=== PATIENT | female | born 1935 | race Caucasian/White ===

== ENCOUNTER 2018-10-28 07:44 | Emergency (ER) | payer MEDICARE, MEDICAID ==
[~2018-10-28] VITALS: Ht 149.9 cm; Wt 25.0 kg
[~2018-10-28 07:44] MED LIST: AMIO200T42 PO; ASPI-1264 PO; ATOR20TA PO; CLOP75TA35 PO; LORA-512 PO; NOR5T PO; NORCO10T PO; OMEG1CAP PO; PROAIR; VALS160T2 PO
[2018-10-28 09:57] LABS: HEMATOCRIT 27.8 % (35.0-45.0); MEAN CORPUSCULAR HEMOGLOBIN 28.8 PG (27.0-31.0); MEAN CORPUSCULAR HGB CONC 32.4 % (33.0-36.5); MEAN CORPUSCULAR VOLUME 88.8 FL (78-98); MEAN PLATELET VOLUME 9.9 FL (7.4-10.4); PLATELET COUNT 200 X10'3 (140-440); RED BLOOD COUNT 3.13 X10'6 (4.20-5.60); RED CELL DISTRIBUTION WIDTH 17.6 % (11.5-14.5); WHITE BLOOD COUNT 5.4 X10'3 (4.5-11.0)
[2018-10-28 10:14] LABS: ALANINE AMINOTRANSFERASE 25 U/L (12-78); ALBUMIN 3.4 G/DL (3.4-5.0); ALBUMIN/GLOBULIN RATIO 0.9 (1.1-1.5); ALKALINE PHOSPHATASE 125 IU/L (46-116); ANION GAP 12 (8-16); ASPARTATE AMINO TRANSFERASE 38 U/L (10-37); BILIRUBIN,TOTAL 0.7 MG/DL (0.1-1.0); BLOOD UREA NITROGEN 14 MG/DL (7-18); BUN/CREATININE RATIO 10.9 (6.6-38.0); CHLORIDE 105 MMOL/L (99-107); CREATININE 1.29 MG/DL (0.40-0.90); GLUCOSE 84 MG/DL (70-104); PLATELET ESTIMATE NORMAL; SODIUM 143 MMOL/L (135-145); TOTAL CARBON DIOXIDE 26.3 MMOL/L (24-32); TOTAL CELLS COUNTED 100; TOTAL PROTEIN 7.2 G/DL (6.4-8.2); eGFR 40 ML/MIN
[2018-10-28 10:15] LABS: ANISOCYTOSIS 2+; BURR CELLS FEW; SCHISTOCYTES FEW
[2018-10-28 10:16] LABS: ACANTHOCYTES FEW; TARGET CELLS FEW
[2018-10-28 10:27] LABS: CLARITY,URINE SLIGHTLY CLOUDY (Clear); COLOR,URINE YELLOW (Yellow); GLUCOSE, URINE NEGATIVE (Neg); KETONES,URINE TRACE mg/dl (Neg); LEUKOCYTE ESTERASE ,URINE TRACE (Neg); NITRITES, URINE NEGATIVE (Neg); OCCULT BLOOD,URINE SMALL (Neg); PROTEIN,URINE 100 mg/dl (Neg); UROBILINOGEN,URINE 0.2 E.U/dL (0.2-1.0)
[2018-10-28 10:28] LABS: UA COLLECTION TYPE STRAIGHT CATH
[2018-10-28 10:30] LABS: BACTERIA,URINE 1+ /HPF (Neg); RBC,URINE 0-2 /HPF (0-2); SQUAMOUS EPITHELIAL CELL,UR FEW /LPF (FEW); WBC,URINE 0-4 /HPF (0-4)
[2018-10-28 10:30] LABS: INR 1.2 INR; PARTIAL THROMBOPLASTIN TIME 29 SECONDS (22-32); PROTHROMBIN TIME 11.4 SECONDS (9.0-12.0)
[2018-10-28 11:22] VITALS: BP 129/65
== END 2018-10-28 11:24 | disposition home or self-care (01) ==
LOC: ER 07:45
DX: R60.0 Localized edema (principal); I48.91 Unspecified atrial fibrillation; I25.10 Atherosclerotic heart disease of native coronary artery without angina pectoris; I10 Essential (primary) hypertension; Z95.5 Presence of coronary angioplasty implant and graft; Z79.82 Long term (current) use of aspirin; Z79.899 Other long term (current) drug therapy
CPT/HCPCS: 36415; 71045; 80053; 81001; 83880; 84484; 85025; 85610; 85730; 87088; 93005; 99284; P9612

== ENCOUNTER 2018-11-02 23:58 | Inpatient (IN) | payer MEDICARE, MEDICAID ==
[~2018-11-02] VITALS: Ht 147.3 cm; Wt 45.5 kg
--- NOTE | 2018-11-03 01:06 | NUR ---
PER DR SNEED, REMOVE C-COLLAR IT IS CAUSING NECK SPASMS
[2018-11-03 01:21] LABS: HEMATOCRIT 23.3 % (35.0-45.0); HEMOGLOBIN 7.7 g/dl (12.0-16.0); MEAN CORPUSCULAR HEMOGLOBIN 29.3 PG (27.0-31.0); MEAN CORPUSCULAR VOLUME 88.8 FL (78-98); MEAN PLATELET VOLUME 9.9 FL (7.4-10.4); PLATELET COUNT 137 X10'3 (140-440); RED BLOOD COUNT 2.62 X10'6 (4.20-5.60); RED CELL DISTRIBUTION WIDTH 16.6 % (11.5-14.5); WHITE BLOOD COUNT 10.3 X10'3 (4.5-11.0)
[2018-11-03 01:26] LABS: ALANINE AMINOTRANSFERASE 37 U/L (12-78); ALBUMIN 3.2 G/DL (3.4-5.0); ALBUMIN/GLOBULIN RATIO 0.9 (1.1-1.5); ALKALINE PHOSPHATASE 106 IU/L (46-116); ANION GAP 14 (8-16); ASPARTATE AMINO TRANSFERASE 91 U/L (10-37); BILIRUBIN,TOTAL 1.1 MG/DL (0.1-1.0); BLOOD UREA NITROGEN 27 MG/DL (7-18); BUN/CREATININE RATIO 13.3 (6.6-38.0); CALCIUM 8.9 MG/DL (8.5-10.1); CHLORIDE 103 MMOL/L (99-107); CREATININE 2.03 MG/DL (0.40-0.90); GLUCOSE 89 MG/DL (70-104); POTASSIUM 4.3 MMOL/L (3.5-5.1); SODIUM 142 MMOL/L (135-145); TOTAL CARBON DIOXIDE 24.7 MMOL/L (24-32); TOTAL PROTEIN 6.6 G/DL (6.4-8.2); eGFR 24 ML/MIN
[2018-11-03 01:38] LABS: MAGNESIUM 1.9 MG/DL (1.5-2.4)
[2018-11-03 01:50] LABS: TOTAL CELLS COUNTED 100
[2018-11-03 01:51] LABS: ANISOCYTOSIS 1+; BURR CELLS 2+; PLATELET ESTIMATE DECREASED; SCHISTOCYTES 1+
[2018-11-03] MEDS ORDERED: LIDOcaine 1% w/EPI 1:100,000 30ml vial (MDV) IJ ONE (03:25)
[2018-11-03] MEDS ORDERED: LIDOcaine 1.5% w/epinephrine 1:200,000 5ml ampul IJ ONE (03:25)
[2018-11-03] MEDS ORDERED: TETanus/Pertussis (Acell)/Diphther VAC/PF (Tdap-Adult) 0.5ml syringe IM ONE (03:40)
[2018-11-03 04:21] LABS: CLARITY,URINE CLEAR (Clear); COLOR,URINE YELLOW (Yellow); GLUCOSE, URINE NEGATIVE (Neg); KETONES,URINE TRACE mg/dl (Neg); LEUKOCYTE ESTERASE ,URINE NEGATIVE (Neg); NITRITES, URINE NEGATIVE (Neg); OCCULT BLOOD,URINE TRACE-LYSED (Neg); PH,URINE 5.5 (4.8-8.0); PROTEIN,URINE NEGATIVE (Neg); UROBILINOGEN,URINE 0.2 E.U/dL (0.2-1.0)
[2018-11-03] MEDS ORDERED: FLUT1AER IH (04:21)
[2018-11-03] MEDS ORDERED: POTA10TA19 PO (04:21)
[2018-11-03] MEDS ORDERED: LORA10TA7 PO (04:21)
[2018-11-03] MEDS ORDERED: FURO-150 PO (04:21)
[2018-11-03] MEDS ORDERED: LEVO500T2 PO (04:21)
[2018-11-03] MEDS ORDERED: HYDR-4383 PO (04:21)
[2018-11-03 04:24] LABS: UA COLLECTION TYPE FOLEY CATH
[2018-11-03 04:27] LABS: BACTERIA,URINE NONE SEEN /HPF (Neg); RBC,URINE NONE SEEN /HPF (0-2); SQUAMOUS EPITHELIAL CELL,UR FEW /LPF (FEW); WBC,URINE NONE SEEN /HPF (0-4)
[2018-11-03] MEDS ORDERED: mag hydrox/Alum hydrox/simeth 30ml oral suspension PO PRN (08:20)
[2018-11-03] MEDS ORDERED: magnesium 4gm in 100ml NS 100 ML IV PRN (08:20)
[2018-11-03] MEDS ORDERED: HYDROcodone/acetaminophen 10/325mg tab PO PRN (08:20)
[2018-11-03] MEDS ORDERED: ondansetron/PF 4mg/2ml inj IV PRN (08:20)
[2018-11-03] MEDS ORDERED: potassium Cl 40MEQ/NS 500ml 500 ML IV PRN ×2 (08:20)
[2018-11-03] MEDS ORDERED: magnesium hydroxide 30ml (MOM) UD suspension PO PRN (08:20)
[2018-11-03] MEDS ORDERED: magnesium Cl slow-release 64mg tablet PO PRN (08:20)
[2018-11-03] MEDS ORDERED: acetaminophen 325mg tablet PO PRN ×2 (08:20)
[2018-11-03] MEDS ORDERED: potassium Cl 20 mEq SR tablet PO PRN (08:20)
[2018-11-03] MEDS ORDERED: morphine 4 MG/ML inj SYRINge IV PRN ×2 (08:20)
[2018-11-03] MEDS ORDERED: HYDROcodone/acetaminophen 5mg/325mg tablet PO PRN (08:20)
[2018-11-03] MEDS ORDERED: POTA8TAB8 PO (08:53)
[2018-11-03 08:59] LABS: INR 1.4 INR; PARTIAL THROMBOPLASTIN TIME 33 SECONDS (22-32); PROTHROMBIN TIME 14.3 SECONDS (9.0-12.0)
[2018-11-03 09:18] LABS: OCCULT BLOOD STOOL NEGATIVE (Neg)
--- NOTE | 2018-11-03 17:17 | NUR ---
Patient in room ED 11. I have received report from SIRISHA Quinonez and had the opportunity to ask questions and assume patient care.
--- NOTE | 2018-11-03 17:42 | NUR ---
Pt. to room 355 B. VSS. BLL, call light in reach. Pt. tucked in. Will continue to monitor.
[2018-11-03 17:45] VITALS: BP 141/62
[2018-11-03 18:00] VITALS: BP 110/37
[2018-11-03] MEDS: normal saline 1000ml 1,000 ML IV SCH (18:29)
--- NOTE | 2018-11-03 18:33 | NUR ---
Problems reprioritized. Patient report given, questions answered & plan of care reviewed with SIRISHA Dooley.
--- NOTE | 2018-11-03 18:34 | NUR ---
Patient in room [facility]. I have received report from Noman Antunez and had the opportunity to ask questions and assume patient care.
[2018-11-03 20:20] VITALS: BP 176/63
[2018-11-03 20:30] VITALS: BP 161/50
[2018-11-03] MEDS: atorvastatin 20mg tablet PO SCH (21:18)
[2018-11-03] MEDS: HYDROcodone/acetaminophen 5mg/325mg tablet PO SCH (21:18)
[2018-11-03] MEDS: omega-3 acid ethyl esters 1GM capsule PO SCH (21:19)
[2018-11-03 22:30] VITALS: BP 185/61
[2018-11-03 22:50] VITALS: BP 149/55
[2018-11-04] VITALS (13 sets, daily range): BP systolic 108–159; BP diastolic 31–69
[2018-11-04 06:32] LABS: MEAN CORPUSCULAR HEMOGLOBIN 28.7 PG (27.0-31.0); MEAN CORPUSCULAR HGB CONC 32.7 % (33.0-36.5); MEAN CORPUSCULAR VOLUME 87.8 FL (78-98); MEAN PLATELET VOLUME 9.9 FL (7.4-10.4); PLATELET COUNT 138 X10'3 (140-440); RED CELL DISTRIBUTION WIDTH 17.4 % (11.5-14.5); WHITE BLOOD COUNT 8.5 X10'3 (4.5-11.0)
[2018-11-04 06:41] LABS: HEMATOCRIT 20.2 % (35.0-45.0); HEMOGLOBIN 6.6 g/dl (12.0-16.0)
--- NOTE | 2018-11-04 07:00 | NUR ---
Patient in room [facility]. I have received report from SHAMIR GRIMM and had the opportunity to ask questions and assume patient care.
[2018-11-04 07:05] LABS: ALBUMIN 2.5 G/DL (3.4-5.0); ANION GAP 16 (8-16); BLOOD UREA NITROGEN 32 MG/DL (7-18); BUN/CREATININE RATIO 15.9 (6.6-38.0); CALCIUM 8.4 MG/DL (8.5-10.1); CHLORIDE 103 MMOL/L (99-107); CREATININE 2.01 MG/DL (0.40-0.90); GLUCOSE 70 MG/DL (70-104); MAGNESIUM 1.9 MG/DL (1.5-2.4); POTASSIUM 3.7 MMOL/L (3.5-5.1); SODIUM 142 MMOL/L (135-145); TOTAL CARBON DIOXIDE 23.2 MMOL/L (24-32); eGFR 24 ML/MIN
[2018-11-04 07:07] LABS: PLATELET ESTIMATE DECREASED; TOTAL CELLS COUNTED 100
[2018-11-04 07:08] LABS: ACANTHOCYTES 1+; ANISOCYTOSIS 1+; SCHISTOCYTES 1+; TOXIC GRANULATION 1+
[2018-11-04] MEDS: omega-3 acid ethyl esters 1GM capsule PO SCH ×2 (08:00→20:05)
[2018-11-04] MEDS: amLODIPine 5mg tablet PO SCH (08:00)
[2018-11-04] MEDS: amiodarone 100mg tablet PO SCH (08:00)
[2018-11-04] MEDS: HYDROcodone/acetaminophen 5mg/325mg tablet PO SCH ×2 (08:00→20:07)
[2018-11-04] MEDS: K and/or MAG REPLACEMENT MC SCH (08:13)
--- NOTE | 2018-11-04 09:03 | NUR ---
LAB IN TO DRAW TYPE AND CROSS.
[2018-11-04] MEDS ORDERED: pantoprazole 40MG/NS 100ML BAG 100 ML IV SCH (11:00)
--- NOTE | 2018-11-04 11:15 | NUR ---
PT TO EGD FOR PROCEDURE. BLOOD PICKED UP IN LAB BY A TECH AND TAKEN TO EGD TO START.
[2018-11-04] MEDS ORDERED: LIDOcaine Viscous 15ml cup ONE (11:16)
[2018-11-04] MEDS ORDERED: MIDAZolam 5mg/5ml vial ONE (11:16)
[2018-11-04] MEDS ORDERED: fentaNYL/PF 50MCG/1 ML 2ML syringe ONE (11:16)
[2018-11-04] MEDS: normal saline 1000ml 1,000 ML IV SCH ×2 (11:30→17:29)
--- NOTE | 2018-11-04 12:58 | NUR ---
PT BACK FROM PROCEDURE. BLOOD HANGING RUNNING AT 75.
--- NOTE | 2018-11-04 16:36 | NUR ---
MRI CALLED AND ASKED FOR SOME MEDICATION FOR PATIENT. TOOK MORPHINE TO MRI AND GAVE PATIENT MEDICATION.
[2018-11-04 17:27] LABS: HEMATOCRIT 26.4 % (35.0-45.0); HEMOGLOBIN 8.6 g/dl (12.0-16.0); MEAN CORPUSCULAR HEMOGLOBIN 28.9 PG (27.0-31.0); MEAN CORPUSCULAR HGB CONC 32.5 % (33.0-36.5); MEAN CORPUSCULAR VOLUME 89.1 FL (78-98); PLATELET COUNT 138 X10'3 (140-440); RED BLOOD COUNT 2.97 X10'6 (4.20-5.60); RED CELL DISTRIBUTION WIDTH 15.9 % (11.5-14.5)
--- NOTE | 2018-11-04 18:27 | NUR ---
Problems reprioritized. Patient report given, questions answered & plan of care reviewed with Miah GRIMM.
--- NOTE | 2018-11-04 18:28 | NUR ---
Patient in room [facility]. I have received report from SIRISHA Tatum and had the opportunity to ask questions and assume patient care.
[2018-11-04] MEDS: atorvastatin 20mg tablet PO SCH (20:06)
[2018-11-04 23:59] LABS: HEMATOCRIT 24.9 % (35.0-45.0); HEMOGLOBIN 8.1 g/dl (12.0-16.0); MEAN CORPUSCULAR HEMOGLOBIN 28.6 PG (27.0-31.0); MEAN CORPUSCULAR HGB CONC 32.3 % (33.0-36.5); MEAN CORPUSCULAR VOLUME 88.4 FL (78-98); MEAN PLATELET VOLUME 9.6 FL (7.4-10.4); PLATELET COUNT 118 X10'3 (140-440); RED BLOOD COUNT 2.82 X10'6 (4.20-5.60); WHITE BLOOD COUNT 8.5 X10'3 (4.5-11.0)
[2018-11-05] VITALS: BP 127/50
--- NOTE | 2018-11-05 06:40 | NUR ---
Problems reprioritized. Patient report given, questions answered & plan of care reviewed with SIRISHA Kulkarni.
--- NOTE | 2018-11-05 06:40 | NUR ---
Patient in room [facility]. I have received report from SHAMIR GRIMM and had the opportunity to ask questions and assume patient care.
[2018-11-05 06:51] LABS: HEMATOCRIT 23.6 % (35.0-45.0); HEMOGLOBIN 7.8 g/dl (12.0-16.0); MEAN CORPUSCULAR HEMOGLOBIN 28.9 PG (27.0-31.0); MEAN CORPUSCULAR VOLUME 87.6 FL (78-98); MEAN PLATELET VOLUME 9.8 FL (7.4-10.4); PLATELET COUNT 123 X10'3 (140-440); RED BLOOD COUNT 2.69 X10'6 (4.20-5.60); RED CELL DISTRIBUTION WIDTH 16.5 % (11.5-14.5); WHITE BLOOD COUNT 8.4 X10'3 (4.5-11.0)
[2018-11-05 07:00] VITALS: BP 130/51
[2018-11-05 07:55] LABS: ANISOCYTOSIS 1+; PLATELET ESTIMATE DECREASED; TOTAL CELLS COUNTED 100
[2018-11-05 07:56] LABS: ACANTHOCYTES 1+; HYPOCHROMASIA 1+; POIKILOCYTOSIS FEW; TARGET CELLS FEW
[2018-11-05] MEDS: K and/or MAG REPLACEMENT MC SCH (08:00)
[2018-11-05] MEDS: omega-3 acid ethyl esters 1GM capsule PO SCH ×2 (08:00→08:08)
[2018-11-05] MEDS: amiodarone 100mg tablet PO SCH (08:08)
[2018-11-05] MEDS: pantoprazole 40mg Tablet.DR PO SCH ×2 (08:08→17:12)
[2018-11-05] MEDS: HYDROcodone/acetaminophen 5mg/325mg tablet PO SCH ×2 (08:08→20:00)
[2018-11-05] MEDS: amLODIPine 5mg tablet PO SCH (08:08)
[2018-11-05 08:41] LABS: ALBUMIN 2.4 G/DL (3.4-5.0); BLOOD UREA NITROGEN 35 MG/DL (7-18); BUN/CREATININE RATIO 17.4 (6.6-38.0); CALCIUM 7.7 MG/DL (8.5-10.1); CREATININE 2.01 MG/DL (0.40-0.90); GLUCOSE 76 MG/DL (70-104); MAGNESIUM 1.9 MG/DL (1.5-2.4); eGFR 24 ML/MIN
[2018-11-05 09:01] LABS: CHLORIDE 108 MMOL/L (99-107); POTASSIUM 3.4 MMOL/L (3.5-5.1); SODIUM 143 MMOL/L (135-145)
[2018-11-05 09:18] LABS: ANION GAP 12 (8-16)
[2018-11-05] MEDS: potassium Cl 20 mEq SR tablet PO PRN ×3 (10:52→21:56)
[2018-11-05 11:00] VITALS: BP 108/40
[2018-11-05 12:16] LABS: HEMATOCRIT 25.5 % (35.0-45.0); HEMOGLOBIN 8.6 g/dl (12.0-16.0); MEAN CORPUSCULAR HEMOGLOBIN 29.8 PG (27.0-31.0); MEAN CORPUSCULAR HGB CONC 33.6 % (33.0-36.5); MEAN CORPUSCULAR VOLUME 88.6 FL (78-98); MEAN PLATELET VOLUME 9.8 FL (7.4-10.4); PLATELET COUNT 130 X10'3 (140-440); RED BLOOD COUNT 2.88 X10'6 (4.20-5.60); RED CELL DISTRIBUTION WIDTH 15.2 % (11.5-14.5); WHITE BLOOD COUNT 9.5 X10'3 (4.5-11.0)
[2018-11-05 18:00] VITALS: BP 120/44
--- NOTE | 2018-11-05 18:01 | NUR ---
Problems reprioritized. Patient report given, questions answered & plan of care reviewed with SHAMIR GRIMM.
--- NOTE | 2018-11-05 18:02 | NUR ---
Patient in room [facility]. I have received report from SIRISHA Smith and had the opportunity to ask questions and assume patient care.
[2018-11-05] MEDS: atorvastatin 20mg tablet PO SCH (21:55)
[2018-11-06] VITALS: BP 108/50
[2018-11-06 06:21] LABS: ALBUMIN 2.5 G/DL (3.4-5.0); ANION GAP 9 (8-16); BLOOD UREA NITROGEN 29 MG/DL (7-18); BUN/CREATININE RATIO 17.2 (6.6-38.0); CALCIUM 7.6 MG/DL (8.5-10.1); CHLORIDE 110 MMOL/L (99-107); CREATININE 1.69 MG/DL (0.40-0.90); GLUCOSE 99 MG/DL (70-104); MAGNESIUM 1.9 MG/DL (1.5-2.4); POTASSIUM 3.9 MMOL/L (3.5-5.1); SODIUM 144 MMOL/L (135-145); TOTAL CARBON DIOXIDE 24.8 MMOL/L (24-32); eGFR 29 ML/MIN
[2018-11-06 06:23] LABS: HEMATOCRIT 26.2 % (35.0-45.0); HEMOGLOBIN 8.8 g/dl (12.0-16.0); MEAN CORPUSCULAR HGB CONC 33.4 % (33.0-36.5); MEAN CORPUSCULAR VOLUME 89.7 FL (78-98); MEAN PLATELET VOLUME 9.7 FL (7.4-10.4); PLATELET COUNT 131 X10'3 (140-440); RED BLOOD COUNT 2.92 X10'6 (4.20-5.60); RED CELL DISTRIBUTION WIDTH 15.7 % (11.5-14.5); WHITE BLOOD COUNT 7.7 X10'3 (4.5-11.0)
--- NOTE | 2018-11-06 06:23 | NUR ---
Problems reprioritized. Patient report given, questions answered & plan of care reviewed with SIRISHA Kulkarni.
[2018-11-06 06:47] VITALS: BP 130/46
[2018-11-06 06:57] LABS: ACANTHOCYTES 2+; ANISOCYTOSIS 1+; PLATELET ESTIMATE DECREASED; TOTAL CELLS COUNTED 100
[2018-11-06 06:58] LABS: SCHISTOCYTES 1+
[2018-11-06] MEDS: pantoprazole 40mg Tablet.DR PO SCH ×2 (07:44→16:27)
[2018-11-06] MEDS: amiodarone 100mg tablet PO SCH (07:44)
[2018-11-06] MEDS: amLODIPine 5mg tablet PO SCH (07:44)
[2018-11-06] MEDS: HYDROcodone/acetaminophen 5mg/325mg tablet PO SCH ×2 (07:44→19:46)
[2018-11-06] MEDS: K and/or MAG REPLACEMENT MC SCH (08:00)
[2018-11-06 11:00] VITALS: BP 104/39
--- NOTE | 2018-11-06 18:56 | NUR ---
gave report to maribell ag
--- NOTE | 2018-11-06 18:57 | NUR ---
Patient in room [facility]. I have received report from LESTER GRIMM and had the opportunity to ask questions and assume patient care.
[2018-11-06 19:00] VITALS: BP 123/49
[2018-11-06] MEDS: atorvastatin 20mg tablet PO SCH (21:21)
[2018-11-07] VITALS: BP 123/49
--- NOTE | 2018-11-07 06:31 | NUR ---
Problems reprioritized. Patient report given, questions answered & plan of care reviewed with Nya Tineo.
[2018-11-07 07:00] VITALS: BP 143/53
[2018-11-07] MEDS: K and/or MAG REPLACEMENT MC SCH (08:00)
[2018-11-07] MEDS: amiodarone 100mg tablet PO SCH (08:26)
[2018-11-07] MEDS: pantoprazole 40mg Tablet.DR PO SCH ×2 (08:26→20:03)
[2018-11-07] MEDS: amLODIPine 5mg tablet PO SCH (08:26)
[2018-11-07] MEDS: HYDROcodone/acetaminophen 5mg/325mg tablet PO SCH ×2 (08:27→20:04)
[2018-11-07 08:31] LABS: BASOPHILS % (AUTO) 0.3 % (0-1); EOSINOPHILS # (AUTO) 0.1 X10'3 (0-0.9); EOSINOPHILS % (AUTO) 1.3 % (0-6); HEMOGLOBIN 10.1 g/dl (12.0-16.0); LYMPHOCYTES # (AUTO) 1.2 X10'3 (1.1-4.8); LYMPHOCYTES % (AUTO) 12.2 % (21-51); MEAN CORPUSCULAR HEMOGLOBIN 28.6 PG (27.0-31.0); MEAN CORPUSCULAR HGB CONC 31.7 % (33.0-36.5); MEAN CORPUSCULAR VOLUME 90.3 FL (78-98); MEAN PLATELET VOLUME 9.2 FL (7.4-10.4); MONOCYTES # (AUTO) 0.5 X10'3 (0-0.9); MONOCYTES % (AUTO) 5.3 % (2-12); NEUTROPHILS # (AUTO) 7.6 X10'3 (1.8-7.7); NEUTROPHILS % (AUTO) 80.9 % (42-75); PLATELET COUNT 159 X10'3 (140-440); RED BLOOD COUNT 3.54 X10'6 (4.20-5.60); RED CELL DISTRIBUTION WIDTH 16.3 % (11.5-14.5); WHITE BLOOD COUNT 9.4 X10'3 (4.5-11.0)
[2018-11-07 08:37] LABS: ALBUMIN 2.7 G/DL (3.4-5.0); ANION GAP 8 (8-16); BLOOD UREA NITROGEN 21 MG/DL (7-18); BUN/CREATININE RATIO 15.8 (6.6-38.0); CALCIUM 8.1 MG/DL (8.5-10.1); CHLORIDE 108 MMOL/L (99-107); CREATININE 1.33 MG/DL (0.40-0.90); GLUCOSE 98 MG/DL (70-104); MAGNESIUM 2.1 MG/DL (1.5-2.4); POTASSIUM 3.7 MMOL/L (3.5-5.1); SODIUM 143 MMOL/L (135-145); TOTAL CARBON DIOXIDE 26.8 MMOL/L (24-32); eGFR 38 ML/MIN
[2018-11-07 12:00] VITALS: BP 118/62
[2018-11-07 20:00] VITALS: BP 130/50
[2018-11-07] MEDS: atorvastatin 20mg tablet PO SCH (20:03)
--- NOTE | 2018-11-07 20:41 | NUR ---
Patient in room [facility]. I have received report from SIRISHA Fay and had the opportunity to ask questions and assume patient care. Addendum: 11/07/18 at 2041 by Malia Holder RN Amended: Links added.
--- NOTE | 2018-11-07 22:07 | NUR ---
Patient in room [facility]. I have received report from SIRISHA Fay and had the opportunity to ask questions and assume patient care. Addendum: 11/07/18 at 2207 by Malia Holder RN Amended: Links added.
[2018-11-08 00:28] VITALS: BP 129/50
[2018-11-08 06:01] LABS: BASOPHILS % (AUTO) 0.5 % (0-1); EOSINOPHILS # (AUTO) 0.1 X10'3 (0-0.9); EOSINOPHILS % (AUTO) 1.2 % (0-6); HEMATOCRIT 31.2 % (35.0-45.0); HEMOGLOBIN 10.1 g/dl (12.0-16.0); LYMPHOCYTES # (AUTO) 1.3 X10'3 (1.1-4.8); LYMPHOCYTES % (AUTO) 15.1 % (21-51); MEAN CORPUSCULAR HEMOGLOBIN 29.4 PG (27.0-31.0); MEAN CORPUSCULAR HGB CONC 32.4 % (33.0-36.5); MEAN CORPUSCULAR VOLUME 90.8 FL (78-98); MEAN PLATELET VOLUME 9.1 FL (7.4-10.4); MONOCYTES # (AUTO) 0.8 X10'3 (0-0.9); MONOCYTES % (AUTO) 9.3 % (2-12); NEUTROPHILS # (AUTO) 6.3 X10'3 (1.8-7.7); NEUTROPHILS % (AUTO) 73.9 % (42-75); PLATELET COUNT 162 X10'3 (140-440); RED BLOOD COUNT 3.43 X10'6 (4.20-5.60); RED CELL DISTRIBUTION WIDTH 16.3 % (11.5-14.5); WHITE BLOOD COUNT 8.5 X10'3 (4.5-11.0)
[2018-11-08 06:03] LABS: ALBUMIN 2.5 G/DL (3.4-5.0); ANION GAP 9 (8-16); BLOOD UREA NITROGEN 18 MG/DL (7-18); BUN/CREATININE RATIO 15.7 (6.6-38.0); CALCIUM 7.9 MG/DL (8.5-10.1); CHLORIDE 108 MMOL/L (99-107); CREATININE 1.15 MG/DL (0.40-0.90); GLUCOSE 92 MG/DL (70-104); MAGNESIUM 2.1 MG/DL (1.5-2.4); POTASSIUM 3.6 MMOL/L (3.5-5.1); SODIUM 142 MMOL/L (135-145); TOTAL CARBON DIOXIDE 24.7 MMOL/L (24-32); eGFR 45 ML/MIN
--- NOTE | 2018-11-08 06:15 | NUR ---
Problems reprioritized. Patient report given, questions answered & plan of care reviewed with SIRISHA Tatum. Addendum: 11/08/18 at 0615 by Malia Holder RN Amended: Links added.
--- NOTE | 2018-11-08 06:43 | NUR ---
Patient in room [facility]. I have received report from Malia GRIMM and had the opportunity to ask questions and assume patient care.
[2018-11-08 07:00] VITALS: BP 133/52
[2018-11-08] MEDS: K and/or MAG REPLACEMENT MC SCH (08:37)
[2018-11-08] MEDS: amLODIPine 5mg tablet PO SCH (08:47)
[2018-11-08] MEDS: pantoprazole 40mg Tablet.DR PO SCH (08:47)
[2018-11-08] MEDS: HYDROcodone/acetaminophen 5mg/325mg tablet PO SCH (08:48)
[2018-11-08] MEDS: amiodarone 100mg tablet PO SCH (08:52)
[2018-11-08 12:04] VITALS: BP 110/43
[2018-11-08] MEDS ORDERED: PANT40TA4 PO (15:38)
--- NOTE | 2018-11-08 16:19 | NUR ---
PATIENT REPORT CALLED INTO NURSE MARSHALL AT [facility]. BOGDAN VAN IN TO PICK PATIENT UP VIA [facility]. NO BELONGINGS TO SEND WITH PATIENT.
--- NOTE | 2018-11-10 09:20 | NUR ---
Pt d/c'd to [facility] for SNF services. SS referral closed.
== END 2018-11-08 16:15 | DRG 377 ==
LOC: ER 23:59 → ED HOLD 11-03 08:18 → SUR 3N 11-03 17:31
PROVIDERS: ADMIT Hospitalist; ATTEND Internal Medicine
PROC: 0HQKXZZ Repair Right Lower Leg Skin, External Approach (ICD-10-PCS; 2018-11-03)
PROC: 0DJ08ZZ Inspection of Upper Intestinal Tract, Via Natural or Artificial Opening Endoscopic (ICD-10-PCS; principal; 2018-11-04)
PROC: 30233N1 Transfusion of Nonautologous Red Blood Cells into Peripheral Vein, Percutaneous Approach (ICD-10-PCS; 2018-11-04)
DX: K29.71 Gastritis, unspecified, with bleeding (principal); E43 Unspecified severe protein-calorie malnutrition; N17.9 Acute kidney failure, unspecified; D62 Acute posthemorrhagic anemia; I13.0 Hypertensive heart and chronic kidney disease with heart failure and stage 1 through stage 4 chronic kidney disease, or unspecified chronic kidney disease; I25.10 Atherosclerotic heart disease of native coronary artery without angina pectoris; K20.9 Esophagitis, unspecified; E78.5 Hyperlipidemia, unspecified; F03.90 Unspecified dementia, unspecified severity, without behavioral disturbance, psychotic disturbance, mood disturbance, and anxiety; F41.9 Anxiety disorder, unspecified; I35.0 Nonrheumatic aortic (valve) stenosis; I48.91 Unspecified atrial fibrillation; K22.8 Other specified diseases of esophagus; I50.9 Heart failure, unspecified; M19.90 Unspecified osteoarthritis, unspecified site; N18.9 Chronic kidney disease, unspecified; W18.39XA Other fall on same level, initial encounter; R29.6 Repeated falls; R74.8 Abnormal levels of other serum enzymes; S81.011A Laceration without foreign body, right knee, initial encounter; G89.4 Chronic pain syndrome; R60.0 Localized edema; I65.22 Occlusion and stenosis of left carotid artery; Z95.5 Presence of coronary angioplasty implant and graft; Z79.899 Other long term (current) drug therapy; Y93.89 Activity, other specified; Y92.89 Other specified places as the place of occurrence of the external cause; Y99.8 Other external cause status; Z68.21 Body mass index [BMI] 21.0-21.9, adult
CPT/HCPCS: 36415; 70450; 71045; 72125; 72141; 80048; 80053; 81001; 82272; 83735; 83880; 84439; 84443; 84484; 85025; 85027; 85610; 85730; 86885; 86900; 86901; 86920; 87070; 90715; 93005; 93306; 96361; 96374; 96375; 97110; 97116; 97162; 97530; 99152; 99285; A4620; C9113; G0378; J2250; J2270; J2405; J3010; J3490; J7030; P9016

== ENCOUNTER 2018-12-23 01:23 | Inpatient (IN) | payer MEDICARE, MEDICAID | END 2018-12-29 14:05 | LOC: ER 01:23 → PCU 3S 12-24 14:00 → ED HOLD 09:43 → ORTHO 4S 16:00 | DX: I27.20 Pulmonary hypertension, unspecified (principal); I50.33 Acute on chronic diastolic (congestive) heart failure; J18.9 Pneumonia, unspecified organism; J96.00 Acute respiratory failure, unspecified whether with hypoxia or hypercapnia; K62.5 Hemorrhage of anus and rectum; N17.9 Acute kidney failure, unspecified; I48.91 Unspecified atrial fibrillation; I11.0 Hypertensive heart disease with heart failure; N18.3 Chronic kidney disease, stage 3 (moderate) ==